=== PATIENT | female | born 1965 | race Caucasian/White ===

== ENCOUNTER 2020-08-23 17:54 | Emergency (ER) | payer BC ==
[2020-08-23] MEDS ORDERED: Ondansetron 4 MG Tab.DIS PO ONE (18:53)
--- NOTE | 2020-08-23 18:58 | EDM.PDOC ---
ED HPI GENERAL MEDICAL PROBLEM - General Chief Complaint: General Stated Complaint: COVID POSITIVE, FEELING DEHYDRATED Time Seen by Provider: 08/23/20 18:40 Source of Information: Reports: Patient History Limitations: Reports: No Limitations - History of Present Illness INITIAL COMMENTS - FREE TEXT/NARRATIVE: 54-year-old female who has been known positive Covid for at least 7 days, has had morning diarrhea for several days and persistent nausea. She has only had one small emesis today but does not feel like keeping up with fluids. No respiratory symptoms. No significant fevers. Today she felt weak, like she did when she was "dehydrated when I was " so came in for evaluation. No bloody diarrhea, it is watery and tends to go away by noon. No abdominal pain. Onset: Gradual Duration: Week(s): (1 to 2 weeks of symptoms, Covid + 7 days ago) Associated Symptoms: Reports: Loss of Appetite, Malaise, Nausea/Vomiting, Weakness. Denies: Cough, Fever/Chills, Headaches, Shortness of Breath Generalized Pain Score (Numeric/FACES): 4 - Related Data Allergies Allergy/AdvReac Type Severity Reaction Status Date / Time Sulfa (Sulfonamide Allergy Hives Verified 08/23/20 18:30 Antibiotics) Home Meds: Home Meds hydrOXYzine HCL [hydrOXYzine] 25 mg PO ASDIRECTED 08/23/20 [History] Past Medical History Respiratory History: Reports: Asthma [employer] History: Reports: Psychiatric History: Reports: Anxiety - Past Surgical History HEENT Surgical History: Reports: Tonsillectomy Female Surgical History: Reports: Section Social & Family History - Tobacco Use Tobacco Use Status *Q: Never Tobacco User - Caffeine Use Caffeine Use: Reports: Soda - Recreational Drug Use Recreational Drug Use: No ED ROS GENERAL - Review of Systems Review Of Systems: See Below Constitutional: Reports: Malaise, Decreased Appetite. Denies: Fever, Chills HEENT: Reports: No Symptoms Respiratory: Denies: Shortness of Breath, Wheezing, Cough Cardiovascular: Denies: Chest Pain GI/Abdominal: Reports: Diarrhea, Nausea, Vomiting. Denies: Abdominal Pain Skin: Reports: No Symptoms Neurological: Reports: Weakness ED EXAM, GENERAL - Physical Exam Exam: See Below Exam Limited By: No Limitations General Appearance: Alert, No Apparent Distress Eye Exam: Bilateral Eye: Normal Inspection (Well-hydrated) Head: Atraumatic Respiratory/Chest: No Respiratory Distress, Lungs Clear Cardiovascular: Regular Rate, Rhythm. No: Tachycardia GI/Abdominal: Normal Bowel Sounds, Soft, Non-Tender Extremities: Normal Inspection Neurological: Alert, Oriented Psychiatric: Normal Affect, Normal Mood Course - Vital Signs Last Recorded V/S: Last Vital Signs Temp 99.5 F 08/23/20 18:26 Pulse 95 08/23/20 18:26 Resp 18 08/23/20 18:26 BP 113/55 L 08/23/20 18:26 Pulse Ox 94 L 08/23/20 18:26 Orthostatic Blood Pressure [ 106/69 Standing] Orthostatic Blood Pressure [ 123/67 Sitting] Orthostatic Blood Pressure [ 113/55 Supine] - Orders/Labs/Meds Meds: Medications Discontinued Medications Generic Name Dose Route Start Last Admin Trade Name Freq PRN Reason Stop Dose Admin Ondansetron HCl 4 mg 08/23/20 18:53 08/23/20 19:16 Zofran Odt PO 08/23/20 18:54 4 mg ONETIME ONE Administration - Re-Assessments/Exams Free Text/Narrative Re-Assessment/Exam: 08/23/20 19:19 Orthostatic blood pressures were obtained and were relatively stable, her vitals are stable. Explained to the patient that aggressive hydration may be harmful, and she was given 1 oral dose of Zofran. 5 additional doses were given to use over the next couple of days, and she was encouraged to increase diet and activity as tolerated. She can return if worsening such as respiratory difficulty or increased symptoms despite treatment. Departure - Departure Time of Disposition: 19:16 Disposition: Home, Self-Care 01 Clinical Impression: Gastroenteritis due to COVID-19 virus - Discharge Information Instructions: Viral Gastroenteritis, Adult, [id number] Referrals: PCP,None [Primary Care Provider] - Forms: ED Department Discharge Care Plan Goals: Use zofran every 8 hours over the next few days for nausea, return if worsening especially breathing difficulties. Otherwise continue quarantine until better. Sepsis Event Note (ED) - Evaluation Sepsis Screening Result: No Definite Risk - Focused Exam Vital Signs: Vital Signs Temp Pulse Resp BP Pulse Ox 08/23/20 18:26 99.5 F 95 18 113/55 L 94 L
== END 2020-08-23 19:16 | disposition home or self-care (01) ==
LOC: JP.ED 17:54
DX: U07.1 COVID-19 (principal); A08.39 Other viral enteritis; J45.909 Unspecified asthma, uncomplicated; Z88.2 Allergy status to sulfonamides
CPT/HCPCS: 99282; 99283; A9270-GY